=== PATIENT | male | born 2000 | race Caucasian/White ===

== ENCOUNTER → 2018-12-10 21:25 | Outpatient (REF) | payer OTHER, SELFPAY ==
[2018-12-10 21:28] LABS: WBC Urine None Seen (0-5/HPF)
[2018-12-11 00:36] LABS: Add Manual Diff / Slide Review NO; Basophils Absolute Auto 0 /uL (0-100); Basophils Percent Auto 1.2 % (0-2); Eosinophils Absolute Auto 100 /uL (0-450); Eosinophils Percent Auto 2.3 % (2-4); Hematocrit 47.3 % (41-53); Hemoglobin 15.8 g/dL (13.5-17.5); Lymphocytes Absolute Auto 1100 /uL (1100-4500); Lymphocytes Percent Auto 26.6 % (25-40); Mean Corpuscular HGB Conc 33.4 % (30-36); Mean Corpuscular Hemoglobin 31.2 PG (26-34); Mean Corpuscular Volume 93.4 fL (80-100); Monocytes Absolute Auto 400 /uL (0-900); Monocytes Percent Auto 10.8 % (3-14); Neutrophils Absolute Auto 2300 /uL (1500-7000); Neutrophils Percent Auto 59.1 % (50-75); Platelet Count 207 X10^3/uL (150-400); Red Blood Cell Count 5.06 X10^6/uL (4.5-5.9)
[2018-12-11 02:08] LABS: Alanine Aminotransferase 34 IU/L (21-72); Albumin 4.7 g/dL (3.5-5.0); Albumin Globulin Ratio 1.8 (1.0-2.8); Alkaline Phosphatase 55 U/L (38-126); Aspartate Aminotransferase 25 IU/L (17-59); BUN Creatinine Ratio 15.6 (6-22); Bilirubin Total 1.1 mg/dL (0.2-1.3); Blood Urea Nitrogen 14 mg/dL (9-20); Calcium 9.5 mg/dL (8.4-10.2); Carbon Dioxide 28 mmol/L (22-32); Chloride 103 mmol/L (98-107); Cholesterol 119 mg/dL (140-199); Estimated Glomerular Filt Rate > 60.0 mL/min (>60); Globulin 2.6 g/dL (1.7-4.1); Glucose 79 mg/dL (70-100); HDL Cholesterol 51 mg/dL (40-60); HEMOLYSIS < 15 (0-50); LDL Cholesterol Calculated 58 mg/dL (<100); Potassium 3.9 mmol/L (3.4-5.1); Sodium 140 mmol/L (137-145); Total Protein 7.3 g/dL (6.3-8.2); Triglycerides 49 mg/dL (35-150)
[2018-12-11 02:12] LABS: Appearance Urine UA CLEAR; Bilirubin Urine UA NEGATIVE (NEGATIVE); Color Urine UA YELLOW; Glucose Urine UA NEGATIVE (Negative); Ketones Urine UA NEGATIVE (NEGATIVE); Leukocyte Esterase Urine UA NEGATIVE (NEGATIVE); Nitrite Urine UA NEGATIVE (Negative); Occult Blood Urine UA NEGATIVE (Negative); Protein Urine UA NEGATIVE (Negative); Specific Gravity Urine UA 1.025 (1.000-1.035); Urobilinogen Urine UA 0.2 E.U./dL (0.2)
[2018-12-11 02:36] LABS: TSH w/ Reflex to FT4 1.07 uIU/mL (0.47-4.68)
[2018-12-11 02:43] LABS: Bacteria Urine Occasional (0-1); Calcium Oxalate Crystals Urine Few; Squamous Epithelial Cell Urine 0-1 /HPF
[2018-12-11 02:44] LABS: Culture Indicated Urine Cult Not Indicated; RBC Urine 0-1/HPF (0-5/HPF)
== END ==
LOC: LAB 21:25
PROVIDERS: Visit Provider Naturopath
DX: Z00.00 Encounter for general adult medical examination without abnormal findings (principal); Z13.89 Encounter for screening for other disorder
CPT/HCPCS: 36415; 80053; 80061; 81001; 82728; 84443; 85025

== ENCOUNTER 2021-07-07 02:06 | Emergency (ER) | payer SELFPAY ==
[2021-07-07 02:18] VITALS: BP 125/88; PULSE 93; RESP 18; TEMP 36.1; O2SAT 95; BMI 20.9
[2021-07-07 02:58] LABS: UR Morphine/Opiate cutoff 300 Negative (Negative); Ur Creatinine Normal (Normal); Ur Specific Gravity Normal (Normal); Urine Amphetamines Positive (Negative); Urine Barbiturates Negative (Negative); Urine Benzodiazepines Negative (Negative); Urine Cocaine Negative (Negative); Urine MDMA Negative (Negative); Urine Methadone Negative (Negative); Urine Methamphetamines Positive (Negative); Urine Oxycodone Negative (Negative); Urine Phencyclidine Negative (Negative); Urine Tetrahydrocannabinol Negative (Negative); Urine Tricyclic Antidepressant Negative (Negative); Urine pH Normal (Normal)
--- NOTE | 2021-07-07 04:45 | ED_ITS ---
HPI - Psych General Chief Complaint: Psychiatric Symptoms Stated Complaint: lack of sleep Time Seen by Provider: 07/07/21 02:16 Source: patient Mode of arrival: Ambulatory History of Present Illness HPI Narrative: 20-year-old gentleman currently homeless presents to the emergency department complaining of no sleep for the last 2 days. He is antsy, psychomotor agitation with skin changes consistent with methamphetamine use. Denies psychiatric issues is having non pressured speech no evidence of acute psychosis. Requesting help with sleep. Related Data Allergies Allergy/AdvReac Type Severity Reaction Status Date / Time No Known Drug Allergies Allergy Verified 07/07/21 02:18 Review of Systems Review of Systems Narrative: Pertinent positive and negative findings as per HPI Remainder of review of systems is otherwise unremarkable for Constitutional: Fevers, chills, weakness ENT: No sore throat, neck pain, ear pain CV: Chest pain, palpitations, Respiratory: Cough, wheeze, dyspnea GI: Nausea, vomiting, diarrhea, : Dysuria, hematuria, Exam Narrative Exam Narrative: General: Hyper alert, psychomotor agitation but no acute physical distress Respiratory: Able to speak in full sentences, no obvious respiratory distress Skin: Multiple lesions consistent with ?methamphetamine picking?. No overt cellulitis Neurologic: Grossly intact no obvious asymmetries or abnormalities Psych: Fluent speech, poor insight Initial Vital Signs Initial Vital Signs: Vital Signs Temperature 97.0 F L 07/07/21 02:18 Pulse Rate 93 H 07/07/21 02:18 Respiratory Rate 18 07/07/21 02:18 Blood Pressure 125/88 07/07/21 02:18 Pulse Oximetry 95 07/07/21 02:18 Course Orders Ordered: ED Orders 07/07/21 02:38 Urine Drug Screen, Rapid Stat Vital Signs Vital signs: Vital Signs - 8 hr 07/07/21 02:18 Temperature 97.0 F L Pulse Rate 93 H Respiratory Rate 18 Blood Pressure 125/88 Pulse Oximetry 95 MDM - Psych Lab Data Labs: Lab Results 07/07/21 Range/Units 02:38 U Opiates 300ng/mL cut Negative (Negative) Ur Oxycodone Screen Negative (Negative) Urine Methadone Screen Negative (Negative) Ur Barbiturates Screen Negative (Negative) U Tricyclic Antidepress Negative (Negative) Ur Phencyclidine Scrn Negative (Negative) Ur Amphetamines Screen Positive H (Negative) U Methamphetamines Scrn Positive H (Negative) Ur MDMA Scrn (Ecstasy) Negative (Negative) U Benzodiazepines Scrn Negative (Negative) Urine Cocaine Screen Negative (Negative) U Marijuana (THC) Screen Negative (Negative) MDM Narrative Medical decision making narrative: Patient was greeted and when I return for more thorough evaluation he was sound asleep. Drug tox is positive for methamphetamine. Patient is allowed to sleep in the Department for a number of hours. 6am patient is a woken. He states that he was planning on going to the longterm but isn't exactly sure which town he is in right now. He asked to be allowed to sleep until 7 when he can leave to get a bus. We are able to accommodate that today. Discharge Plan Departure Patient Disposition: Home Clinical Impression: Methamphetamine use Insomnia Qualifiers: Insomnia type: drug-induced Qualified Code(s): F19.982 - Other psychoactive substance use, unspecified with psychoactive substance-induced sleep disorder Instructions: Substance Use Disorder Activity Restrictions/Additional Instructions: Methamphetamine is a stimulant and will prevent you from sleeping. The best treatment for your insomnia at this time is stopping the methamphetamine rather than adding any additional drugs. You slept soundly in the emergency department for a number of hours. I hope you are able to find a safe place to sleep this evening. Avoiding methamphetamine will be much better for your overall health and will certainly allow you to sleep more normally.
== END 2021-07-07 07:00 | disposition home or self-care (01) ==
PROVIDERS: Emergency Provider Emergency Medicine
DX: F15.182 Other stimulant abuse with stimulant-induced sleep disorder (principal)
CPT/HCPCS: 80305; 99283